=== PATIENT | male | born 1965 | race African-American/Black ===

== ENCOUNTER 2021-04-07 23:16 | Emergency (ER) | payer BC, OTHER, SELFPAY ==
[~2021-04-07] VITALS: Ht 185.4 cm; Wt 95.3 kg
[2021-04-07 23:56] VITALS: BP_SYST 162
--- NOTE | 2021-04-07 23:56 | NUR ---
Patient to ER tent for evaluation.
--- NOTE | 2021-04-08 00:02 | NUR ---
Patient brought in complaining of diarrhea x 3 days. Patient diagnosed with Covid 1 week ago. No acute distress noted.
--- NOTE | 2021-04-08 00:41 | NUR ---
ER at bedside examining patient.
[2021-04-08] MEDS ORDERED: VITD2000 PO (00:47)
[2021-04-08] MEDS ORDERED: IVER3TAB PO (00:47)
[2021-04-08] MEDS ORDERED: ZINC50TA69 PO (00:47)
[2021-04-08 00:51] VITALS: BP_SYST 152
--- NOTE | 2021-04-08 00:51 | NUR ---
Patient given written and verbal discharge instructions and verbalizes understanding. ER MD discussed with patient the results and treatment provided. Patient in stable condition. ID arm band removed. Rx of IVERMECTIN, VITAMIN D-3 ZINC given. Patient educated on pain management and to follow up with PMD. Pain Scale 0/10 Opportunity for questions provided and answered. Medication side effect fact sheet provided.
== END 2021-04-08 00:51 | disposition home or self-care (01) ==
LOC: SED 23:16
DX: U07.1 COVID-19 (principal); K52.9 Noninfective gastroenteritis and colitis, unspecified; Z79.899 Other long term (current) drug therapy
CPT/HCPCS: 99283